=== PATIENT | female | born 1970 | race Caucasian/White ===

== ENCOUNTER → 2020-03-26 13:32 | Outpatient (BNVA) | payer OTHER, SELFPAY | PROVIDERS: Family Provider Family Medicine; PCP Family Medicine; Visit Provider Nurse Practitioner Family | DX: Z11.59 Encounter for screening for other viral diseases (principal) | CPT/HCPCS: 87635 ==

== ENCOUNTER 2020-04-10 11:09 | Outpatient (CLI) | payer OTHER, SELFPAY ==
--- NOTE | 2020-04-10 11:15 | MM_ITS ---
WS: [id number] BILATERAL SCREENING DIGITAL MAMMOGRAM WITH CAD HISTORY: SCREENING COMPARISON: 10/17/2018 and 03/23/2012 Bilateral CC and MLO views submitted. Computer aided detection analyzed. Breast composition: There are scattered areas of fibroglandular density. No suspicious masses, microc alcifications or architectural distortion. Long-term stability mass in the upper outer quadrant of th e RIGHT breast with adjacent calcification. MM/[place] [id number] IMPRESSION: BI-RADS: 2-Benign FOLLOW UP: 1 Year Follow-up
== END 2020-04-10 11:10 | disposition home or self-care (01) ==
LOC: RADSHAW 11:12
PROVIDERS: PCP Family Medicine; Visit Provider Family Medicine
DX: Z12.31 Encounter for screening mammogram for malignant neoplasm of breast (principal)
CPT/HCPCS: 77067

== ENCOUNTER 2020-04-10 11:43 | Outpatient (CLI) | payer OTHER, SELFPAY ==
--- NOTE | 2020-04-10 11:50 | XR_ITS ---
WS: [id number] LUMBAR SPINE TECHNIQUE: 3 views of the lumbar spine CLINICAL INFORMATION: low back pain COMPARISON: None. FINDINGS: Five [id number] lumbar vertebral bodies. Disc space heights are well preserved. No compression f ractures. No spondylolisthesis. Visualized sacroiliac joints are normal. Normal visualized soft tissu es. Partially visualized bowel gas pattern is normal. Mild to moderate facet arthropathy L4-L5 and L5 -S1. XR/XR lumbar spine 2-3V* [id number] IMPRESSION: 1. Normal lumbar alignment. No acute compression fractures. 2. Disc space heights and vertebral body heights well-preserved. 3. Mild facet arthropathy L4-L5 and L5-S1.
== END 2020-04-10 11:44 | disposition home or self-care (01) ==
LOC: RADWPI 11:47
PROVIDERS: Family Provider Family Medicine; PCP Family Medicine; Visit Provider Family Medicine
DX: M54.5 Low back pain (principal); M47.816 Spondylosis without myelopathy or radiculopathy, lumbar region; M47.817 Spondylosis without myelopathy or radiculopathy, lumbosacral region
CPT/HCPCS: 72100

== ENCOUNTER 2020-05-05 15:56 | Outpatient (CLI) | payer OTHER, SELFPAY ==
--- NOTE | 2020-05-05 16:06 | MR_ITS ---
WS: [id number] MRI LUMBAR SPINE NONCONTRAST TECHNIQUE: Sagittal T1, T2 and STIR imaging. Axial T1 and T2 imaging. CLINICAL INFORMATION: LUMBAR RADICULOPATHY COMPARISON: None. FINDINGS: Mild lumbar curve. No acute compression. Disc bulging worse L4-L5. No high-grade central canal stenos is. L1-L2: Normal. L2-L3: No significant disc bulging. Mild facet arthropathy. Central canal and foramen are patent. L3-L4: Mild annular bulging with slight effacement of the ventral thecal sac. Mild left and no signif icant right foraminal narrowing. Mild facet arthropathy. Spinal canal is patent. L4-L5: Shallow central disc protrusion with slight effacement of ventral thecal sac. Encroachment tra versing L5 nerve roots bilaterally in the subarticular recess. Mild facet arthropathy. Left eccentric disc bulging with mild left foraminal narrowing. L5-S1: Mild annular bulging with slight effacement of ventral thecal sac. Narrowing of the subarticul ar recess bilaterally. Encroachment traversing S1 nerve roots. Mild bilateral foraminal narrowing. Mo derate facet arthropathy. Visualized pelvic bony structures: Normal. Paravertebral soft tissues: Normal. MR/MR lumbar spine wo con* [id number] IMPRESSION: 1. Mild lumbar curve. No acute compression. No high-grade central canal stenos is. 2. Shallow central disc protrusion L4-5 with narrowing of the subarticular rec ess bilaterally. Encroachment traversing right greater than left L5 nerve roots . 3. Mild disc bulging L5-S1 with osteophytic ridging. Encroachment traversing l eft greater than right S1 nerve roots. 4. Mild left L4-5 and bilateral L5-S1 foraminal narrowing. This is worse at ri ght L5-S1 with encroachment on the exiting right L5 nerve root. 5. Mild facet arthropathy L4-5 and mild to moderate facet arthropathy L5-S1.
== END 2020-05-05 15:57 | disposition home or self-care (01) ==
LOC: RADWPI 16:03
PROVIDERS: PCP Family Medicine; Visit Provider Family Medicine
DX: M54.16 Radiculopathy, lumbar region (principal); M47.816 Spondylosis without myelopathy or radiculopathy, lumbar region; M47.817 Spondylosis without myelopathy or radiculopathy, lumbosacral region; M51.27 Other intervertebral disc displacement, lumbosacral region; M51.26 Other intervertebral disc displacement, lumbar region
CPT/HCPCS: 72148

== ENCOUNTER → 2021-08-02 13:52 | Outpatient (BNVA) | payer SELFPAY | PROVIDERS: PCP Family Medicine; Visit Provider Nurse Practitioner Family | DX: Z20.822 Contact with and (suspected) exposure to COVID-19 (principal) | CPT/HCPCS: 87635 ==

== ENCOUNTER 2022-03-04 09:52 | Outpatient (CLI) | payer OTHER, SELFPAY ==
--- NOTE | 2022-03-04 10:09 | MM_ITS ---
WS: [id number] BILATERAL SCREENING DIGITAL BREAST TOMOSYNTHESIS MAMMOGRAM WITH CAD HISTORY: SCREENING COMPARISON: 04/10/2020, 10/17/2018 and 03/23/2012 Bilateral CC and MLO views with tomosynthesis and synthetic mammography submitted. Computer aided det ection analyzed. Breast composition: There are scattered areas of fibroglandular density. No suspicious masses, microc alcifications or architectural distortion. Long-term stability of the mass in the upper outer quadran t of the RIGHT breast. No new mass. No suspicious mass or calcification. MM/[place] [id number] IMPRESSION: BI-RADS: 2-Benign FOLLOW UP: 1 Year Follow-up
== END 2022-03-04 09:53 | disposition home or self-care (01) ==
LOC: RAD 09:57
PROVIDERS: PCP Family Medicine; Visit Provider Family Medicine
DX: Z12.31 Encounter for screening mammogram for malignant neoplasm of breast (principal)
CPT/HCPCS: 77063; 77067

== ENCOUNTER 2024-02-16 11:30 | Outpatient (CLI) | payer BC, SELFPAY ==
--- NOTE | 2024-02-16 11:52 | MM_ITS ---
WS: [id number] BILATERAL 3D TOMOSYNTHESIS DIGITAL SCREENING MAMMOGRAPHY WITH CAD CLINICAL INFORMATION: SCREENING HISTORY: Screening mammogram. No current complaints. COMPARISON: 2021 TECHNIQUE: Bilateral CC and MLO views. FINDINGS: Scattered fibroglandular densities bilaterally. No suspicious focal mass, asymmetry, calcifications, or architectural distortion. No evidence of malignancy. Stable nodule with biopsy clip upper outer RI GHT breast. Stable nodular breast tissue in the RIGHT greater than LEFT breast. MM/[place] [id number] IMPRESSION: BI-RADS: 2-Benign FOLLOW UP: 1 Year Follow-up Recommend return to annual screening mammography.
== END 2024-02-16 11:31 | disposition home or self-care (01) ==
PROVIDERS: PCP Family Medicine; Visit Provider Nurse Practitioner Family
DX: Z12.31 Encounter for screening mammogram for malignant neoplasm of breast (principal); R92.323 Mammographic fibroglandular density, bilateral breasts; N63.41 Unspecified lump in right breast, subareolar
CPT/HCPCS: 77063; 77067